=== PATIENT | female | born 1950 | race Caucasian/White ===

== ENCOUNTER 2016-03-16 10:16 | Outpatient (RCR) | payer BC ==
[~2016-03-16] VITALS: Ht 165.1 cm; Wt 59.4 kg
[~2016-03-16 10:16] MED LIST: ADV250-14 IH; ASCO100T6 PO; ASPI-504 PO; AZEL23SP NS; BUDE10.2 IH; CALC600T12 PO; CETI-262 PO; EZET10TA5 PO; FEXO180T84 PO; FLAX100011 PO; FLUT16SP NS; FLUT1DIS3 IH; LVT.025T PO; MAGN250T PO; MULT-954 PO; NF-ESOM40C PO; OMEP20CA12 PO; PHEN-640 PO; POTA99TA16 PO; RALO60TA PO; RANI-419 PO; RANI150T15 PO; ROSU5TAB PO; SULF1TAB35 PO; VITA1CAP PO; multi vitamin; vit c; vit d3 PO
[2016-03-16] MEDS: OMALIZUMAB 150 MG (XOLAIR) VIAL SC SCH (10:28)
[2016-03-30] MEDS: OMALIZUMAB 150 MG (XOLAIR) VIAL SC SCH (10:09)
[2016-04-13] MEDS: OMALIZUMAB 150 MG (XOLAIR) VIAL SC SCH (10:34)
[2016-04-27] MEDS: OMALIZUMAB 150 MG (XOLAIR) VIAL SC SCH (10:28)
[2016-05-11] MEDS: OMALIZUMAB 150 MG (XOLAIR) VIAL SC SCH (10:36)
[2016-05-25] MEDS: OMALIZUMAB 150 MG (XOLAIR) VIAL SC SCH (10:12)
[2016-06-08] MEDS ORDERED: OMALIZUMAB 150 MG (XOLAIR) VIAL SC SCH (09:50)
[2016-06-08 10:23] VITALS: BP 106/41
[2016-06-08] MEDS: OMALIZUMAB 150 MG (XOLAIR) VIAL SC SCH (10:31)
== END 2016-06-14 | disposition home or self-care (01) ==
LOC: EUOP 03-30 10:06
PROVIDERS: ATTEND Family Medicine
DX: J45.40 Moderate persistent asthma, uncomplicated (principal)
CPT/HCPCS: 96372; J2357

== ENCOUNTER 2016-06-22 10:05 | Outpatient (RCR) | payer BC ==
[~2016-06-22] VITALS: Ht 165.1 cm; Wt 60.3 kg
[~2016-06-22 10:05] MED LIST changes: +OMALIZUMAB 150 MG (XOLAIR) VIAL SC ONE
[2016-06-22] MEDS ORDERED: OMALIZUMAB 150 MG (XOLAIR) VIAL SC ONE (10:15)
--- NOTE | 2016-06-22 10:19 | NUR ---
Medication dose prepared by [facility] and provided in two syringes. Once syringe of med injected into posterior aspect of Rt upper arm and one syringe of med injected into posterior aspect of Lt upper arm. Patient tolerated injections well. No bleeding noted from either injection site. Patient denies having any questions or concerns and was dismissed ambulatory from department.
[2016-07-06] MEDS ORDERED: OMALIZUMAB 150 MG (XOLAIR) VIAL SC ONE (10:00)
[2016-07-20] MEDS ORDERED: OMALIZUMAB 150 MG (XOLAIR) VIAL SC ONE (09:55)
[2016-08-03] MEDS ORDERED: OMALIZUMAB 150 MG (XOLAIR) VIAL SC ONE (09:40)
[2016-08-03 10:11] VITALS: BP 119/44
== END 2016-08-15 18:31 | disposition home or self-care (01) ==
LOC: EUOP 07-06 10:05
PROVIDERS: ATTEND Family Medicine
DX: J45.40 Moderate persistent asthma, uncomplicated (principal)
CPT/HCPCS: 96372; J2357

== ENCOUNTER → 2016-07-13 | Outpatient (CLI) | payer BC ==
[~2016-07-13] MED LIST changes: -OMALIZUMAB 150 MG (XOLAIR) VIAL SC ONE
--- NOTE | 2016-07-13 13:13 | Diagnostic Imaging Report ---
INDICATION: Pain in the coccyx region. Frontal and lateral views of the sacrum and coccyx are performed. AVAILABLE COMPARISONS: None FINDINGS: Tubal ligation clips are visible. The visualized SI joints and hip joints are negative. An angulation is noted at the sacrococcygeal junction which is normal variation. Mild intervertebral disc space narrowing is present at L4-L5 and L5-S1. IMPRESSION: 1. No significant abnormality is identified. Dictated by: Dictated on workstation # [id number]
== END ==
LOC: RAD 11:30
PROVIDERS: ATTEND Nurse Practitioner Family
DX: M53.3 Sacrococcygeal disorders, not elsewhere classified (principal)
CPT/HCPCS: 72220

== ENCOUNTER → 2016-07-17 | Outpatient (CLI) | payer MEDICARE, BC ==
--- NOTE | 2016-07-17 13:18 | Diagnostic Imaging Report ---
INDICATION: Postmenopausal, screening for osteoporosis. COMPARISON: 09/30/2013. DISCUSSION: Bone mineral density measurements of the lumbar spine and bilateral hips were performed on a [employer] DEXA scanner. Bone mineral density of the lumbar spine, L2-L4, measures 1.036 g per centimeter squared which correlates to a T score of -1.4, osteopenic. No statistically significant interval change in BMD measurements of the lumbar spine. Bone mineral density of the average bilateral hips measures 0.905 g per centimeter squared which correlates to a T score of -0.8, normal. No statistically significant interval change from previous BMD measurements within the hips. Exam is considered osteopenic by World Health Organization guidelines with a moderate increased fracture risk. Recommend initiation of treatment. Recommend one-year followup DEXA scan. IMPRESSION: 1. Low bone mineral density within the lumbar spine within the osteopenic range with a moderate increased fracture risk. 2. No statistically significant interval change in BMD measurements within the spine and bilateral hips. Dictated by: Dictated on workstation # [id number]
== END ==
LOC: RAD 08:53
PROVIDERS: ATTEND Nurse Practitioner Family
DX: M85.88 Other specified disorders of bone density and structure, other site (principal)
CPT/HCPCS: 77080

== ENCOUNTER → 2016-07-19 | Outpatient (CLI) | payer MEDICARE, BC ==
[~2016-07-19] MED LIST changes: +ROPIVACAINE 1% 10 MG/ML (NAROPIN) 10 ML AMPUL ONE; +SODIUM CHLORIDE VIAL (PF) 10 ML IV ONE; +methylPREDNISolone 80 MG/ML (DEPO MEDROL) VIAL IM ONE
--- NOTE | 2016-07-19 10:58 | PAIN MANAGEMENT ---
Date of note: 07/19/2016 Procedure: Caudal epidural steroid injection Fluoroscopy exposure time: The patient was taken to the operating room for the use of fluoroscopic guidance for a total of 19 seconds. This is a 65-year-old female patient under the care of Dr. Skyler Cabezas. The patient was referred to anesthesia secondary to coccydynia. She comes complaining of pain in her tailbone. She does not have any radicular symptoms at this point in time other than into the bilateral glutes. She has x-ray results that show loss of disk height at L4-5 and L5-S1. Based on presentation today, we decided to proceed forward with a caudal epidural steroid injection. Informed consent was obtained and the patient was taken to the operating room for the use of fluoroscopic guidance and needle tip placement. She was placed in the left lateral decubitus position. Orders for procedure verified. Patient denies any bleeding tendencies. After informed consent obtained, the patient was positioned for the caudal epidural steroid injection. Landmarks identified. The site was prepped and draped using aseptic technique. The skin and overlying tissues were localized with a 3 mL of Preservative-Free 1% lidocaine using a 1.5-inch 27-gauge needle. A 21-gauge 2-inch needle was then inserted to the caudal space via the sacral hiatus. No blood, cerebral spinal fluid, pain, or paresthesia was noted on entry. Omnipaque 240 for a total of 0.25 mL was injected after needle placement varying needle tip placement along with fluoroscopy. Depo-Medrol 80 mg and ropivacaine 0.2% in normal saline for a total of 10 mL was injected. The needle was then removed and the patient was turned to the sitting position where she remained for approximately 10 to 15 minutes. She was then able to stand and walk with assistance to the exit per [facility] RN with vital signs stable and faculties intact. She is asked to follow up with me via my cellphone in approximately 3 days. The patient states she understands these discharge instructions and I will follow her from there.
== END ==
LOC: PMC 08:47
PROVIDERS: ATTEND Family Medicine
DX: M53.3 Sacrococcygeal disorders, not elsewhere classified (principal); J44.9 Chronic obstructive pulmonary disease, unspecified; M85.80 Other specified disorders of bone density and structure, unspecified site
CPT/HCPCS: 62323; J1040; J2795; J7050

== ENCOUNTER → 2016-08-08 | Outpatient (CLI) | payer MEDICARE, BC ==
--- NOTE | 2016-08-08 15:50 | PAIN MANAGEMENT ---
Date of note: 08/08/2016 PROCEDURE: Caudal steroid injection. TOTAL FLUOROSCOPIC TIME: 17 seconds. This is a 66-year-old female patient under the care of Dr. Skyler Cabezas. Ms. Walters was referred to anesthesia for the purposes of an epidural steroid injection secondary to coccydynia. She is not new to our services. She has received an epidural steroid injection and in the last 2-3 weeks where she received a caudal epidural steroid injection by myself. The patient got some results with that however they were limited in how long they lasted. She comes back in with pain deep in her tailbone area. She has no radiating symptoms. Based on presentation we decided to proceed forward with another caudal epidural steroid injection. Informed consent was obtained. Patient was taken to the operating room for use of fluoroscopic guidance for needle tip placement. Orders for procedure verified. Patient denies any bleeding tendencies. After informed consent obtained, the patient was positioned for the caudal injection. Landmarks identified. The site was prepped and draped using aseptic technique. The skin and overlying tissues were localized with a 3 mL of Preservative-Free 1% lidocaine using a 1.5-inch 27-gauge needle. A 21-gauge 2-inch needle was then inserted to the caudal space via the sacral hiatus. No blood, cerebral spinal fluid, pain, or paresthesia was noted on entry. A 10 mL solution of 0.20 % ropivacaine with Depo-Medrol 80 mg and normal saline was injected slowly without mass volume effect. Negative aspiration every 2 mL injected. The needle was then removed. The patient was then turned to the sitting position where she remained for approximately 10 minutes. She was then able to stand on her own leg strength where she was escorted out of the building per CHILD PSYCHOLOGIST. The patient is asked to follow up with me via my cellphone in 3 days. She states she understands these discharge instructions and I will follow her from there.
== END ==
LOC: PMC 13:01
PROVIDERS: ATTEND Family Medicine
DX: M53.3 Sacrococcygeal disorders, not elsewhere classified (principal); M85.88 Other specified disorders of bone density and structure, other site; M50.30 Other cervical disc degeneration, unspecified cervical region; M54.5 Low back pain
CPT/HCPCS: 62323; J1040; J2795; J7050